=== PATIENT | male | born 2000 | race Two or more races ===

== ENCOUNTER 2024-06-08 02:29 | Emergency (ER) | payer OTHER, SELFPAY ==
[2024-06-08 02:38] VITALS: BP 152/79; PULSE 68; RESP 20; TEMP 36.6; O2SAT 96; BMI 25.2
--- NOTE | 2024-06-08 05:01 | ED.DENTAL ---
HPI - Dental/Oral General Chief complaint: Dental/Oral Stated complaint: Migraine, Dental pain Time Seen by Provider: 06/08/24 04:47 Source: patient Mode of arrival: ambulatory Limitations: no limitations History of Present Illness ED Provider: HPI Narrative: Patient with dental caries tooth 1. Which is broken having pain for last few days got worse tonight could not sleep plan to see dentist today Related Data Previous Rx's ?Medication ?Instructions ?Recorded amoxicillin 875 mg-potassium 1 tab PO BID #20 tabs 06/08/24 clavulanate 125 mg tablet ibuprofen 600 mg tablet 600 mg PO Q6H PRN fever or pain 06/08/24 #30 tabs Allergies Allergy/AdvReac Type Severity Reaction Status Date / Time No Known Allergies Allergy Verified 06/08/24 02:42 Review of Systems Review of Systems: Yes all other systems are reviewed and are negative [facility] Social History Social History Advance Directives: No Advance Directives Information Provided: Yes Do you have a plan to hurt others: No Plan Physical Exam Vital Signs: Vital Signs: Last Vital Signs Temp 98.4 F 06/08/24 05:09 Pulse 67 06/08/24 05:09 Resp 16 06/08/24 05:09 BP 134/87 06/08/24 05:09 Pulse Ox 98 06/08/24 05:09 O2 Del Method Room Air 06/08/24 05:09 BMI result Body Mass Index 25.2 HEENT: Teeth image: 1. Broken tooth with caries tender to touch Medications Administered Discontinued Medications Generic Name Dose Route Start Last Admin Trade Name Freq PRN Reason Stop Dose Admin Amoxicillin/Clavulanate Potassium 875 mg 06/08/24 05:10 06/08/24 05:24 Amoxicillin/Potassium Clav 875 Mg Tablet PO 06/08/24 05:11 875 mg ONCE ONE Administration Ibuprofen 600 mg 06/08/24 05:10 06/08/24 05:24 Ibuprofen 600 Mg Tablet PO 06/08/24 05:11 600 mg ONCE ONE Administration Medical Decision Making Medical Decision Making [facility] Narrative: Patient with dental caries with broken tooth pain improved after Orajel patient does not want any infra out alveolar block will see the dentist today Discharge Plan Discharge Clinical Impression: Dental caries Patient Disposition: Home, Self-Care Instructions: Toothache (ED) Additional Instructions: Take antibiotic as prescribed Pain medication as prescribed Follow up with your dentist Prescriptions: New ibuprofen 600 mg tablet 600 mg PO Q6H PRN (Reason: fever or pain) Qty: 30 0RF amoxicillin-pot clavulanate 875-125 mg tablet 1 tab PO BID Qty: 20 0RF Print Language: Luxembourgish
[2024-06-08 05:09] VITALS: BP 134/87; PULSE 67; RESP 16; TEMP 36.9; O2SAT 98
[2024-06-08] MEDS: Ibuprofen 600 MG TABLET PO (05:24)
[2024-06-08] MEDS: Amoxicillin/Potassium Clav 875 MG TABLET PO (05:24)
[2024-06-08 05:48] VITALS: BP 134/87; PULSE 67; RESP 16; TEMP 36.9; O2SAT 98
== END 2024-06-08 06:00 | disposition home or self-care (01) ==
PROVIDERS: Emergency Provider Internal Medicine
DX: K02.9 Dental caries, unspecified (principal); G43.909 Migraine, unspecified, not intractable, without status migrainosus; K08.89 Other specified disorders of teeth and supporting structures
CPT/HCPCS: 99283